=== PATIENT | female | born 1930 | race Hispanic/Latino ===

== ENCOUNTER 2017-09-09 09:01 | Emergency (ER) | payer MEDICARE ==
[~2017-09-09 09:01] MED LIST: ASPI-1012 PO; BUME1TAB12 PO; ERGO500014 PO; FERR-52 PO; FOLI0.8T22 PO; SERT25TA5 PO; TRAM50TA4 PO; TYL3 PO; VITA1CAP85 PO; VITA400C70 PO
[2017-09-09 09:47] LABS: BASOPHILS % (AUTO) 0.7 % (0.0-5.0); EOSINOPHILS % (AUTO) 0.2 % (0.0-8.0); LYMPHOCYTES % (AUTO) 3.9 % (21.0-51.0); MEAN CORPUSCULAR HEMOGLOBIN 32.3 pg (27.0-33.0); MEAN CORPUSCULAR VOLUME 94.9 fL (79-99); MONOCYTES % (AUTO) 7.4 % (3.0-13.0); NEUTROPHILS % (AUTO) 87.8 % (40.0-77.0); PLATELET COUNT (AUTO) 150 K/uL (130-400); RED CELL DISTRIBUTION WIDTH 13.4 % (11.0-15.5); WHITE BLOOD COUNT (AUTO) 13.1 K/uL (4.8-10.8)
[2017-09-09 09:54] LABS: CREATININE 0.9 mg/dL (0.5-1.5); POTASSIUM 4.5 mmol/L (3.5-5.1)
[2017-09-09 10:05] LABS: INR 0.93 (0.85-1.15); PARTIAL THROMBOPLASTIN TIME 25.6 SEC (26.3-35.5); PROTHROMBIN TIME 9.8 SEC (9.6-11.6)
[2017-09-09 12:03] LABS: APPEARANCE,URINE Clear (CLEAR); BILIRUBIN,URINE Negative (NEGATIVE); COLOR,URINE Yellow (YELLOW); GLUCOSE, URINE (UA) Negative (NEGATIVE); KETONES,URINE Trace mg/dL (NEGATIVE); LEUKOCYTE ESTERASE ,URINE Negative (NEGATIVE); NITRATE,URINE Negative (NEGATIVE); OCCULT BLOOD,URINE Negative (NEGATIVE); PROTEIN,URINE Negative (NEGATIVE); UROBILINOGEN,URINE 0.2 mg/dL (0.2-1.0)
[2017-09-09 12:20] LABS: BACTERIA,URINE Rare /HPF (None Seen); RBC,URINE 0-1 /HPF (0-1); SQUAMOUS EPITHELIAL CELL,UR Rare /LPF (0-2)
== END 2017-09-09 12:16 | disposition home or self-care (01) ==
LOC: EDH 09:01
DX: S00.83XA Contusion of other part of head, initial encounter (principal); S60.222A Contusion of left hand, initial encounter; S50.12XA Contusion of left forearm, initial encounter; M54.2 Cervicalgia; Z88.8 Allergy status to other drugs, medicaments and biological substances; W18.39XA Other fall on same level, initial encounter; Y93.89 Activity, other specified; Y92.89 Other specified places as the place of occurrence of the external cause; Y99.8 Other external cause status
CPT/HCPCS: 36415; 70450; 71045; 72125; 73090; 73130; 80048; 81001; 82550; 84484; 85025; 85610; 85730; 93005

== ENCOUNTER → 2017-09-30 | Outpatient (CLI) | payer MEDICARE | END | disposition home or self-care (01) | LOC: OIH 10:09 | PROVIDERS: ATTEND Student in an Organized Health Care Education/Training Program | DX: G30.9 Alzheimer's disease, unspecified (principal); G31.9 Degenerative disease of nervous system, unspecified; F02.80 Dementia in other diseases classified elsewhere, unspecified severity, without behavioral disturbance, psychotic disturbance, mood disturbance, and anxiety | CPT/HCPCS: 70450 ==

== ENCOUNTER 2018-09-03 08:37 | Emergency (ER) | payer MEDICARE ==
[2018-09-03] MEDS ORDERED: ACETAMINOPHEN EXTRA STRENGTH 500 MG TABLET ONE (09:50)
== END 2018-09-03 10:54 | disposition home or self-care (01) ==
LOC: EDH 08:37
DX: S80.12XA Contusion of left lower leg, initial encounter (principal); M19.90 Unspecified osteoarthritis, unspecified site; Z88.1 Allergy status to other antibiotic agents; W18.39XA Other fall on same level, initial encounter; Y93.89 Activity, other specified; Y92.098 Other place in other non-institutional residence as the place of occurrence of the external cause; Y99.8 Other external cause status
CPT/HCPCS: 73590

== ENCOUNTER 2019-06-21 09:03 | Inpatient (IN) | payer MEDICARE ==
[~2019-06-21] VITALS: Ht 160 cm; Wt 47.0 kg
[~2019-06-21 09:03] MED LIST changes: -BUME1TAB12 PO; +BUME1TAB6 PO; +VITA-164 PO; -VITA400C70 PO
[2019-06-21 09:37] LABS: BASOPHILS % (AUTO) 0.3 % (0.0-5.0); EOSINOPHILS % (AUTO) 0.1 % (0.0-8.0); HEMATOCRIT 33.6 % (36-48); LYMPHOCYTES % (AUTO) 6.3 % (21.0-51.0); MEAN CORPUSCULAR HEMOGLOBIN 32.4 pg (27.0-33.0); MEAN CORPUSCULAR HGB CONC 33.9 g/dL (32.0-36.0); MEAN CORPUSCULAR VOLUME 95.7 fL (79-99); MONOCYTES % (AUTO) 6.5 % (3.0-13.0); NEUTROPHILS % (AUTO) 86.8 % (40.0-77.0); PLATELET COUNT (AUTO) 184 K/uL (130-400); RED BLOOD CELL COUNT(AUTO) 3.51 MIL/uL (4.00-5.50); RED CELL DISTRIBUTION WIDTH 12.9 % (11.0-15.5); WHITE BLOOD COUNT (AUTO) 13.2 K/uL (4.8-10.8)
[2019-06-21 09:52] LABS: CREATININE 1.1 mg/dL (0.5-1.5); POTASSIUM 3.5 mmol/L (3.5-5.1)
[2019-06-21 09:55] LABS: INR 0.99 (0.85-1.15); PARTIAL THROMBOPLASTIN TIME 20.1 SEC (26.3-35.5); PROTHROMBIN TIME 10.2 SEC (9.6-11.6)
[2019-06-21 09:57] LABS: ALBUMIN 3.4 g/dL (3.5-5.0); BILIRUBIN,TOTAL 0.5 mg/dL (0.2-1.0); TOTAL PROTEIN, SERUM 6.3 g/dL (6.0-8.3)
[2019-06-21 10:28] LABS: APPEARANCE,URINE Cloudy (CLEAR); BILIRUBIN,URINE Negative (NEGATIVE); COLOR,URINE Yellow (YELLOW); GLUCOSE, URINE (UA) Negative (NEGATIVE); KETONES,URINE Negative (NEGATIVE); LEUKOCYTE ESTERASE ,URINE Trace (NEGATIVE); NITRATE,URINE Negative (NEGATIVE); OCCULT BLOOD,URINE Negative (NEGATIVE); PROTEIN,URINE Negative (NEGATIVE)
[2019-06-21 10:44] LABS: BACTERIA,URINE Rare /HPF (None Seen); RBC,URINE 0-1 /HPF (0-1); WBC,URINE 0-1 /HPF (0-1)
[2019-06-21 10:45] LABS: MUCUS,URINE Few LPF (None Seen); SQUAMOUS EPITHELIAL CELL,UR Rare /HPF (0-2)
[2019-06-21] MEDS ORDERED: ACETAMINOPHEN EXTRA STRENGTH 500 MG TABLET ONE (11:18)
[2019-06-21] MEDS ORDERED: ACETAMINOPHEN 325 MG TAB PO PRN (13:45)
[2019-06-21] MEDS ORDERED: ONDANSETRON HCL 4 MG/2 ML VIAL IV PRN (13:45)
[2019-06-21] MEDS ORDERED: LACTULOSE 20 GM/30 ML UDCUP PO PRN (13:45)
--- NOTE | 2019-06-21 16:00 | NUR ---
NOTE AAOX3. DENIES PAIN OR DISCOMFORT. NO DISTRESS OR SOB. BBS CLEAR. NO CHEST PAIN. SHE CAME IN VIA EMS BECAUSE SHE FELL DOWN AT HOME. ALL STUDIES WERE NEGATIVE. NO FRACTURES NO BLEEDS. SHE WILL BE EVALUATED BY CASE MANAGEMENT FOR PLACEMENT TOMORROW.
[2019-06-21 16:35] VITALS: BP 107/50
[2019-06-21] MEDS ORDERED: CALC-866 PO (17:10)
[2019-06-21] MEDS ORDERED: CYAN-52 PO (17:10)
[2019-06-21] MEDS ORDERED: CILO50TA PO (17:10)
[2019-06-21] MEDS ORDERED: TORS10TA18 PO (17:10)
[2019-06-21] MEDS ORDERED: ALEN70TA10 PO (17:10)
[2019-06-21] MEDS ORDERED: DONE5TAB33 PO (17:10)
[2019-06-21] MEDS ORDERED: ACET-2743 PO (17:10)
[2019-06-21] MEDS ORDERED: FOLI1 PO (17:10)
[2019-06-21] MEDS: SODIUM CHLORIDE 0.9% 1000ML 1,000 ML IV SCH (18:37)
[2019-06-21 20:00] VITALS: BP 102/51
[2019-06-21] MEDS ORDERED: FLU VACC QS2019-20 36MOS UP/PF 60 MCG/0.5 ML ML IM ONE (21:00)
[2019-06-22] VITALS: BP_SYST 100; BP_SYST 118; BP_DIAS 51; BP_DIAS 64
[2019-06-22 03:44] VITALS: BP 111/57
[2019-06-22 04:24] LABS: BASOPHILS % (AUTO) 0.7 % (0.0-5.0); EOSINOPHILS % (AUTO) 0.9 % (0.0-8.0); HEMATOCRIT 30.3 % (36-48); LYMPHOCYTES % (AUTO) 15.7 % (21.0-51.0); MEAN CORPUSCULAR HEMOGLOBIN 33.9 pg (27.0-33.0); MEAN CORPUSCULAR VOLUME 96.9 fL (79-99); NEUTROPHILS % (AUTO) 75.7 % (40.0-77.0); PLATELET COUNT (AUTO) 147 K/uL (130-400); RED BLOOD CELL COUNT(AUTO) 3.13 MIL/uL (4.00-5.50); RED CELL DISTRIBUTION WIDTH 12.6 % (11.0-15.5); WHITE BLOOD COUNT (AUTO) 7.2 K/uL (4.8-10.8)
[2019-06-22 04:41] LABS: CREATININE 0.9 mg/dL (0.5-1.5); POTASSIUM 3.8 mmol/L (3.5-5.1)
[2019-06-22 07:30] VITALS: BP 116/55
[2019-06-22] MEDS ORDERED: MEGESTROL 400 MG/10 ML UDCUP PO SCH (09:00)
[2019-06-22] MEDS: FAMOTIDINE 20MG TAB 20 MG TAB PO SCH (09:34)
[2019-06-22] MEDS: ENOXAPARIN SODIUM 30 MG/0.3 ML SQ SCH (09:34)
[2019-06-22] MEDS: MEGESTROL 400 MG/10 ML UDCUP PO SCH (09:35)
[2019-06-22 11:11] VITALS: BP 101/47
--- NOTE | 2019-06-22 13:35 | NUR ---
RD Notification Pt admitted for s/p Fall at home, Leukocytosis, Hx of HTN, DLD. Pt tolerating GI Soft/Walsh Diet order with no report of GI distress. Pt with Fair PO intake (50%) with appetite stimulant in place. Pt reports desire for light breakfast, regular lunch, light dinner. Pt refused offer of snacks between meals. RD reports concern for nutritional intake, Pt agrees to Ensure TID. Pt with request of Coffee with sugar and milk, and toast at breakfast. Likes fruit and salad for dinner. Pt LBM 06/21/19. Pt monitored labs: Alb 3.4. RD to continue to monitor. Please notify RD as additional nutrition concerns arise. Thank you. Addendum: 06/22/19 at [address] RD Amended: Links added.
[2019-06-22] MEDS: SODIUM CHLORIDE 0.9% 1000ML 1,000 ML IV SCH (14:15)
--- NOTE | 2019-06-22 14:36 | NUR ---
[facility] CM met with pt and daughter discussed dc plans. Pt is semi-independent prior to admission, lives at home alone, daughter lives close by. Pt has a rollator walker, walker, shower chair, provider 6hrs (8am-12pm and 6-8pm) daily. Denies any other equipments/services. Feels safe to go back home, daughter able to assist with transportation and needs as necessary. Offered possible short term placement rehab as pt is still weak at this time, pt declined, prefers to go back home. DC plan to home once stable. CM to cont to follow up. Addendum: 06/22/19 at 1441 by TONY GONZALEZ LVN CM Amended: Links added.
[2019-06-22] MEDS ORDERED: FLU VACC QS2019-20 36MOS UP/PF 60 MCG/0.5 ML ML IM ONE (15:55)
[2019-06-22 16:04] VITALS: BP 112/55
[2019-06-22 20:12] VITALS: BP 125/56
[2019-06-22] MEDS: DONEPEZIL HCL 5 MG TAB PO SCH (23:48)
[2019-06-22] MEDS: CILOSTAZOL 100 MG TAB PO SCH (23:48)
[2019-06-23 00:12] VITALS: BP 115/59
[2019-06-23 04:16] VITALS: BP 112/54
[2019-06-23 05:35] LABS: BASOPHILS % (AUTO) 0.8 % (0.0-5.0); EOSINOPHILS % (AUTO) 2.1 % (0.0-8.0); HEMATOCRIT 32.8 % (36-48); LYMPHOCYTES % (AUTO) 20.8 % (21.0-51.0); MEAN CORPUSCULAR HEMOGLOBIN 32.6 pg (27.0-33.0); MONOCYTES % (AUTO) 8.5 % (3.0-13.0); NEUTROPHILS % (AUTO) 67.8 % (40.0-77.0); PLATELET COUNT (AUTO) 168 K/uL (130-400); RED BLOOD CELL COUNT(AUTO) 3.42 MIL/uL (4.00-5.50); RED CELL DISTRIBUTION WIDTH 12.8 % (11.0-15.5); WHITE BLOOD COUNT (AUTO) 6.7 K/uL (4.8-10.8)
[2019-06-23 06:11] LABS: CREATININE 0.9 mg/dL (0.5-1.5); POTASSIUM 3.6 mmol/L (3.5-5.1)
[2019-06-23 07:30] VITALS: BP 135/66
[2019-06-23] MEDS: FAMOTIDINE 20MG TAB 20 MG TAB PO SCH (09:19)
[2019-06-23] MEDS: CILOSTAZOL 100 MG TAB PO SCH ×2 (09:19→22:01)
[2019-06-23] MEDS: TORSEMIDE 20 MG TAB PO SCH (09:19)
[2019-06-23] MEDS: FOLIC ACID 1 MG TABLET PO SCH (09:19)
[2019-06-23] MEDS: MEGESTROL 400 MG/10 ML UDCUP PO SCH (09:19)
[2019-06-23] MEDS: FERROUS SULFATE 325 MG TABLET.DR PO SCH (09:19)
[2019-06-23] MEDS: FOLIC ACID/VITAMIN B COMP W-C 1 MG CAP/TAB PO SCH (09:19)
[2019-06-23] MEDS: ENOXAPARIN SODIUM 30 MG/0.3 ML SQ SCH (09:20)
[2019-06-23] MEDS: SODIUM CHLORIDE 0.9% 1000ML 1,000 ML IV SCH (10:15)
[2019-06-23 11:00] VITALS: BP 92/39
[2019-06-23 16:00] VITALS: BP 105/50
[2019-06-23 20:08] VITALS: BP 121/58
[2019-06-23] MEDS: DONEPEZIL HCL 5 MG TAB PO SCH (22:01)
[2019-06-24 00:08] VITALS: BP 112/57
[2019-06-24 04:08] VITALS: BP 106/55
[2019-06-24 04:33] LABS: BASOPHILS % (AUTO) 0.6 % (0.0-5.0); EOSINOPHILS % (AUTO) 2.9 % (0.0-8.0); HEMATOCRIT 32.4 % (36-48); LYMPHOCYTES % (AUTO) 21.4 % (21.0-51.0); MEAN CORPUSCULAR HEMOGLOBIN 33.2 pg (27.0-33.0); MEAN CORPUSCULAR HGB CONC 34.4 g/dL (32.0-36.0); MEAN CORPUSCULAR VOLUME 96.4 fL (79-99); MONOCYTES % (AUTO) 8.5 % (3.0-13.0); NEUTROPHILS % (AUTO) 66.6 % (40.0-77.0); PLATELET COUNT (AUTO) 157 K/uL (130-400); RED BLOOD CELL COUNT(AUTO) 3.36 MIL/uL (4.00-5.50); RED CELL DISTRIBUTION WIDTH 12.9 % (11.0-15.5); WHITE BLOOD COUNT (AUTO) 6.6 K/uL (4.8-10.8)
[2019-06-24 04:50] LABS: CREATININE 1.1 mg/dL (0.5-1.5); POTASSIUM 3.5 mmol/L (3.5-5.1)
[2019-06-24 07:48] VITALS: BP 132/65
[2019-06-24] MEDS: FOLIC ACID 1 MG TABLET PO SCH (08:38)
[2019-06-24] MEDS: FOLIC ACID/VITAMIN B COMP W-C 1 MG CAP/TAB PO SCH (08:38)
[2019-06-24] MEDS: MEGESTROL 400 MG/10 ML UDCUP PO SCH (08:38)
[2019-06-24] MEDS: TORSEMIDE 20 MG TAB PO SCH (08:38)
[2019-06-24] MEDS: FERROUS SULFATE 325 MG TABLET.DR PO SCH (08:38)
[2019-06-24] MEDS: CILOSTAZOL 100 MG TAB PO SCH ×2 (08:39→20:19)
[2019-06-24] MEDS: FAMOTIDINE 20MG TAB 20 MG TAB PO SCH (08:39)
[2019-06-24] MEDS: ENOXAPARIN SODIUM 30 MG/0.3 ML SQ SCH (08:41)
[2019-06-24 12:04] VITALS: BP 105/49
[2019-06-24 16:00] VITALS: BP 103/55
--- NOTE | 2019-06-24 18:13 | NUR ---
d/c report called and faxed to [facility]; iv access removed, pt and family are in agreement with transfer.
--- NOTE | 2019-06-24 19:36 | NUR ---
NOTE LINO Larsen RN RECEIVED CALL FROM [facility] THAT NO DRIVERS WERE AVAILABLE TO TRANSPORT PATIENT. SHE ALSO SAYS SHE WAS ASKED TO SET UP EMS AND THAT THEY WOULD PAY FOR THE SERVICE. I CONTACTED T[facility] OPERATING ROOM MANAGER TO INFORM. SAID SHE WOULD COME OVER TO THE UNIT.
--- NOTE | 2019-06-24 20:00 | NUR ---
NOTE TOMÁS LAM RN SAYS SHE SPOKE WITH [facility] AND THEY WILL BE SETTING UP EMS FROM OVER THERE. SHE IS FILLING OUT EMS FORM HER FOR WHEN EMS COMES. PATIENT INFORMED.
[2019-06-24 20:08] VITALS: BP 118/68
[2019-06-24] MEDS: DONEPEZIL HCL 5 MG TAB PO SCH (20:19)
--- NOTE | 2019-06-24 21:50 | NUR ---
NOTE EMS HERE TO TRANSPORT PATIENT. PATIENT HAS ALL HER BELONGINGS IN HER BAGS AND HER ROLLING WALKER. 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
== END 2019-06-24 21:45 | DRG 690 ==
LOC: EDH 09:03 → EDHIP 13:35 → 4CH 15:56 → 4BH 06-23 11:50
PROVIDERS: ADMIT Family Medicine; ATTEND Family Medicine
DX: N39.0 Urinary tract infection, site not specified (principal); E46 Unspecified protein-calorie malnutrition; R64 Cachexia; Z68.1 Body mass index [BMI] 19.9 or less, adult; E78.5 Hyperlipidemia, unspecified; Z23 Encounter for immunization; Z60.2 Problems related to living alone; J44.9 Chronic obstructive pulmonary disease, unspecified; I10 Essential (primary) hypertension; Z82.49 Family history of ischemic heart disease and other diseases of the circulatory system; Z88.8 Allergy status to other drugs, medicaments and biological substances; Z82.0 Family history of epilepsy and other diseases of the nervous system; Z82.3 Family history of stroke; Z82.5 Family history of asthma and other chronic lower respiratory diseases; Z83.3 Family history of diabetes mellitus
CPT/HCPCS: 36415; 70450; 72125; 73080; 73110; 73521; 80048; 80053; 81001; 82550; 84484; 85025; 85610; 85730; 87088; 93005; 97039; G0378; J1650; Q2035